=== PATIENT | male | born 1995 | race Caucasian/White ===

== ENCOUNTER 2024-10-06 20:57 | Emergency (ER) | payer SELFPAY ==
[~2024-10-06] VITALS: Ht 167.6 cm; Wt 67.0 kg
[2024-10-06 21:10] VITALS: TEMP 36.8; O2SAT 100
[2024-10-06 22:48] VITALS: BP 118/72; PULSE 80; RESP 16
[2024-10-06] MEDS: IBUPROFEN 400MG TABLET PO ONE (22:48)
[2024-10-06 22:50] LABS: BASOPHILS % 0.2 % (0.0-2.0); EOSINOPHILS % 1.1 % (0.0-5.0); HEMOGLOBIN. 14.6 g/dL (14.0-18.0); LYMPHOCYTES % 18.2 % (20.0-50.0); MEAN CORPUSCULAR HEMOGLOBIN 29.4 pg (28.0-32.0); MEAN CORPUSCULAR HGB CONC 34.7 g/dL (31.0-37.0); MEAN CORPUSCULAR VOLUME 84.6 fL (80.0-94.0); MEAN PLATELET VOLUME 7.1 fl (7.4-10.4); MONOCYTES % 8.2 % (2.0-8.0); NEUTROPHILS % 72.3 % (40.0-76.0); PLATELET 243 x1000/uL (130-400); RED BLOOD CELL COUNT 4.96 mill/uL (4.7-6.1); RED CELL DISTRIBUTION WIDTH 13.8 % (11.6-14.6); WHITE BLOOD COUNT 10.9 x1000/uL (4.5-11.0)
[2024-10-06 23:00] LABS: CHLORIDE 110 mEq/L (98-107); POTASSIUM 3.7 mEq/L (3.5-5.1)
[2024-10-06 23:01] LABS: SODIUM 142 mEq/L (136-145)
[2024-10-06 23:02] LABS: CALCIUM 9.3 mg/dL (8.7-10.4); CARBON DIOXIDE 24 mEq/L (21-32)
[2024-10-06 23:06] LABS: CREATININE 0.9 mg/dL (0.6-1.3)
[2024-10-06 23:07] LABS: GLUCOSE 95 mg/dL (70-105); UREA NITROGEN BLOOD 15 mg/dL (9-23)
[2024-10-06 23:10] LABS: TROPONIN I HIGH SENSITIVITY < 4 ng/L (3.0-53)
== END 2024-10-07 00:15 | disposition home or self-care (01) ==
LOC: ER 20:57
DX: R53.1 Weakness (principal); R07.89 Other chest pain
CPT/HCPCS: 36415; 71045; 80048; 84484; 85025; 93005; 99285

== ENCOUNTER 2024-10-11 14:46 | Emergency (ER) | payer MEDICAID ==
[~2024-10-11] VITALS: Ht 180.3 cm; Wt 73.0 kg
[2024-10-11 14:50] VITALS: O2SAT 98
[2024-10-11 16:36] LABS: BASOPHILS % 0.4 % (0.0-2.0); HEMATOCRIT. 42.2 % (42.0-52.0); HEMOGLOBIN. 14.3 g/dL (14.0-18.0); LYMPHOCYTES % 20.2 % (20.0-50.0); MEAN CORPUSCULAR HEMOGLOBIN 27.9 pg (28.0-32.0); MEAN CORPUSCULAR HGB CONC 33.9 g/dL (31.0-37.0); MEAN CORPUSCULAR VOLUME 82.5 fL (80.0-94.0); MEAN PLATELET VOLUME 7.3 fl (7.4-10.4); MONOCYTES % 6.3 % (2.0-8.0); NEUTROPHILS % 71.1 % (40.0-76.0); PLATELET 246 x1000/uL (130-400); RED BLOOD CELL COUNT 5.11 mill/uL (4.7-6.1); RED CELL DISTRIBUTION WIDTH 13.6 % (11.6-14.6); WHITE BLOOD COUNT 9.2 x1000/uL (4.5-11.0)
[2024-10-11 16:41] LABS: CALCIUM 9.7 mg/dL (8.7-10.4); CHLORIDE 108 mEq/L (98-107); POTASSIUM 3.9 mEq/L (3.5-5.1); SODIUM 142 mEq/L (136-145)
[2024-10-11 16:42] LABS: CARBON DIOXIDE 21 mEq/L (21-32)
[2024-10-11 16:47] LABS: CREATININE 0.9 mg/dL (0.6-1.3); GLUCOSE 88 mg/dL (70-105); UREA NITROGEN BLOOD 12 mg/dL (9-23)
[2024-10-11] MEDS ORDERED: B50 MT (16:51)
[2024-10-11 17:15] VITALS: BP 116/75; PULSE 81; RESP 16; TEMP 36.6; O2SAT 98
== END 2024-10-11 17:19 | disposition home or self-care (01) ==
LOC: ER 14:46
DX: F41.9 Anxiety disorder, unspecified (principal)
CPT/HCPCS: 36415; 80048; 85025; 99283